=== PATIENT | male | born 1990 | race Hispanic/Latino ===

== ENCOUNTER 2018-08-08 15:48 | Observation (INO) | payer SELFPAY ==
[~2018-08-08] VITALS: Ht 170.2 cm; Wt 86.7 kg
[2018-08-08] MEDS ORDERED: KETOROLAC TROMETHAMINE 30 MG/ML VIAL IV NR (16:01)
[2018-08-08] MEDS ORDERED: ONDANSETRON HCL INJ 2 MG/ML VIAL IV NR (16:01)
[2018-08-08] MEDS ORDERED: SODIUM CHLORIDE 0.9% 1000ML 1,000 ML ONE (16:10)
[2018-08-08] MEDS ORDERED: SODIUM CHLORIDE 0.9% 1000ML 1,000 ML IV SCH (16:15)
[2018-08-08 17:14] LABS: BASOPHILS # (AUTO) 0.1 (0.0-0.1); BASOPHILS % 0.7 % (0.0-1.0); EOSINOPHILS % 0.3 % (0.0-6.0); LYMPHOCYTES # (AUTO) 1.5 (1.0-3.2); LYMPHOCYTES % 9.4 % (18.0-39.1); MEAN CORPUSCULAR HEMOGLOBIN 29.4 pg (28-32); MEAN CORPUSCULAR HGB CONC 35.3 g/dL (31-35); MEAN CORPUSCULAR VOLUME 83.2 fL (81-99); MONOCYTES # (AUTO) 0.7 (0.2-0.8); MONOCYTES % 4.6 % (4.4-11.3); NEUTROPHILS % 83.9 % (38.7-80.0); PLATELET COUNT 272 x10e3/uL (140-360); RED BLOOD COUNT 6.13 x10e6/uL (4.3-5.7); RED CELL DISTRIBUTION WIDTH 12.8 % (11.7-14.4)
[2018-08-08 17:23] LABS: BLOOD UREA NITROGEN 12 mg/dL (7-26); BUN/CREATININE RATIO 10 (6-25); CALCIUM 9.2 mg/dL (8.4-10.2); CARBON DIOXIDE 18 mmol/L (22-29); CHLORIDE 100 mmol/L (98-107); CREATININE, SERUM 1.17 mg/dL (0.72-1.25); EST GLOMERULAR FILTRATION RATE > 60 ML/MIN (60-); GLUCOSE 148 mg/dL (74-118); SODIUM 138 mmol/L (136-145)
--- NOTE | 2018-08-08 17:23 | Diagnostic Imaging Report ---
EXAM: CT Abdomen and Pelvis WITHOUT contrast INDICATION: ^Stone Protocol ^[id number] ^1621 ^Y COMPARISON: None. TECHNIQUE: Abdomen and pelvis were scanned utilizing a multidetector helical scanner from the lung base to the pubic symphysis without administration of IV contrast. Absence of intravenous contrast decreases sensitivity for detection of focal lesions and vascular pathology. Coronal and sagittal reformations were obtained. Routine protocol was performed. IV CONTRAST: None. ORAL CONTRAST: Water RADIATION DOSE: Total DLP: 428.7 mGy*cm Estimated effective dose: (DLP x 0.015 x size factor) mSv COMPLICATIONS: None FINDINGS: LINES and TUBES: None. LOWER THORAX: Unremarkable HEPATOBILIARY: No focal hepatic lesions. No biliary ductal dilation. GALLBLADDER: No radio-opaque stones or sludge. No wall thickening. SPLEEN: No splenomegaly. PANCREAS: No focal masses or ductal dilatation. ADRENALS: No adrenal nodules KIDNEYS/URETERS: The left kidney is swollen and surrounding by moderate amount of low-attenuation free fluid and fat stranding. There is also surrounding fat stranding in the proximal and mid ureter without dilatation. No calcified stones in the left ureter or renal parenchyma. The right kidney and right ureter appear unremarkable. GI TRACT: No abnormal distention, wall thickening, or evidence of bowel obstruction. Appendix is normal. PELVIC ORGANS/BLADDER: Unremarkable. LYMPH NODES: No lymphadenopathy. VESSELS: Unremarkable. PERITONEUM / RETROPERITONEUM: No free air or fluid. BONES: Unremarkable. SOFT TISSUES: Unremarkable. IMPRESSION: Extensive swelling of the left kidney with surrounding moderate amount of low-attenuation fluid and mild inflammatory changes of the proximal and mid left ureter without calcified stones. Findings are highly concerning for ureteral-pyelonephritis. Differential diagnosis includes recently passed stone with increased blood flow. Signed by: Dr. Mady Scott M.D. on 08/08/2018 5:20 PM
[2018-08-08] MEDS ORDERED: CEFTRIAXONE SOD 1 GM VIAL IV ONE (18:45)
[2018-08-08] MEDS ORDERED: MEROPENEM 1GM 100 ML IV SCH ×2 (19:00→22:00)
--- OUTSIDE RECORDS SUMMARY | 2018-08-08 19:10 | XMS REPORT ---
Author Author [facility] Address Unknown Phone Unavailable Care Team Providers Care Chimney Sweeper Name Role Phone Crystal MUNOZ Unavailable Unavailable Problems This patient has no known problems. Allergies, Adverse Reactions, Alerts This patient has no known allergies or adverse reactions. Medications This patient has no known medications. Results Test Description Test Time Test Comments Text Results Atomic Results Result Comments CT ABDOMEN/PELVIS WO 2018-08-08 17:15:00 [place] [address] Patient Name: RICK GARCIA MR #: [id number] : 1990 Age/Sex: 27/M Req #: [id number] Adm Physician: Ordered by: ALBERTO MUNOZ MD Report #: [id number] Location: ER Room/Bed: Procedure: [id number] CT/CT ABDOMEN/PELVIS WO Exam Date: 08/08/18 Exam Time: 1621 REPORT STATUS: Signed EXAM: CT Abdomen and Pelvis WITHOUT contrast RENETTA CATION: Stone Protocol [id number] 1621 Y COMPARISON: None. TECHNIQUE: Abdomen and pelvis were scanned utilizing a multidetector helical scanner from the lung base to the pubic symphysis without administration of IV contrast. Absence of intravenous contrast decreases sensitivity for detection of focal lesions and vascular pathology. Coronal and sagittal reformations were obtained. Routine protocol was performed. IV CONTRAST: None. ORAL CONTRAST: Water RADIATION DOSE: Total DLP: 428.7 mGy*cm Estimated effective dose: (DLP x 0.015 x size factor) mSv COMPLICATIONS: None FINDINGS: LINES and TUBES: None. LOWER THORAX: Unremarkable HEPATOBILIARY: No focal hepatic lesions. No biliary ductal dilation. GALLBLADDER: No radio-opaque stones or sludge. No wall thickening. SPLEEN: No splenomegaly. PANCREAS: No focal masses or ductal dilatation. ADRENALS: No adrenal nodules KIDNEYS/URETERS: The left kidney is swollen and surrounding by moderate amount of low-attenuation free fluid and fat stranding. There is also surrounding fat stranding in the proximal and mid ureter without dilatation. No calcified stones in the left ureter or renal parenchyma. The right kidney and right ureter appear unremarkable. GI TRACT: No abnormal distention, wall thickening, or evidence of bowel obstruction. Appendix is normal. PELVIC ORGANS/BLADDER: Unremarkable. LYMPH NODES: No lymphadenopathy. VESSELS: Unremarkable. PE RITONEUM / RETROPERITONEUM: No free air or fluid. BONES: Unremarkable. SOFT TISSUES: Unremarkable. IMPRESSION: Extensive swelling of the left kidney with surrounding moderate amount of low-attenuation fluid and mild inflammatory changes of the proximal and mid left ureter without calcified stones. Findings are highly concerning for ureteral-pyelonephritis. Differential diagnosis includes recently passed stone with increased blood flow. Signed by: Dr. Alli Mccarthy M.D. on 08/08/2018 5:20 PM Dictated By: ALLI MCCARTHY MD 19 Transcribed By: BOB on 08/08/181719 COPY TO: ALBERTO MUNOZ MD
[2018-08-08 19:14] LABS: CLARITY,URINE CLOUDY (CLEAR); COLOR,URINE YELLOW (YELLOW); LEUKOCYTE ESTERASE ,URINE NEGATIVE (NEGATIVE); NITRITE,URINE NEGATIVE (NEGATIVE); PROTEIN,URINE DIPSTICK 3+ (NEGATIVE)
[2018-08-08 19:15] LABS: BILIRUBIN,URINE 1+ (NEGATIVE); KETONES,URINE NEGATIVE (NEGATIVE); URINE UROBILINOGEN 0.2 mg/dL (0.2 - 1)
[2018-08-08 19:34] LABS: RBC,URINE 21-50 /HPF (0-5)
[2018-08-08 19:36] LABS: AMORPHOUS SEDIMENT,URINE MODERATE (FEW); BACTERIA,URINE MODERATE /HPF; EPITHELIAL CELLS,URINE FEW /LPF; TRANSITIONAL EPI CELLS,URINE FEW
[2018-08-08 19:38] LABS: RENAL EPITHELIAL CELLS,URINE FEW
[2018-08-08 21:30] VITALS: BP 142/87
--- NOTE | 2018-08-08 21:30 | NUR ---
Pt received from ER. Pt A&O and in no apparent distress. Pt in visible pain and guarding abdomen. Pt family member at bedside. Pt Maori speaking. All safety measures ensured, bed alarm on, and pt call mixon near.
[2018-08-08] MEDS: HYDROMORPHONE 2MG/ML 2 MG/ML ML IV PRN (21:45)
[2018-08-08] MEDS: ONDANSETRON HCL INJ 2 MG/ML VIAL IV PRN (21:46)
[2018-08-08] MEDS: SODIUM CHLORIDE 0.9% 1000ML 1,000 ML IV SCH ×2 (21:46→23:00)
[2018-08-08 21:47] VITALS: BP 142/87
[2018-08-09] VITALS: BP 129/81
[2018-08-09] MEDS: ONDANSETRON HCL INJ 2 MG/ML VIAL IV PRN ×2 (02:07→12:30)
[2018-08-09] MEDS: HYDROMORPHONE 2MG/ML 2 MG/ML ML IV PRN ×5 (02:07→23:46)
[2018-08-09 04:00] VITALS: BP 130/90
[2018-08-09] MEDS: MEROPENEM 1GM 100 ML IV SCH ×2 (05:29→13:00)
[2018-08-09] MEDS: SODIUM CHLORIDE 0.9% 1000ML 1,000 ML IV SCH ×2 (05:29→14:40)
[2018-08-09 05:54] LABS: BASOPHILS # (AUTO) 0.1 (0.0-0.1); BASOPHILS % 0.4 % (0.0-1.0); EOSINOPHILS % 0.1 % (0.0-6.0); HEMATOCRIT 44.1 % (38.2-49.6); LYMPHOCYTES # (AUTO) 0.9 (1.0-3.2); LYMPHOCYTES % 6.5 % (18.0-39.1); MEAN CORPUSCULAR HEMOGLOBIN 29.1 pg (28-32); MEAN CORPUSCULAR VOLUME 85.5 fL (81-99); MONOCYTES # (AUTO) 1.1 (0.2-0.8); NEUTROPHILS # (AUTO) 11.9 (2.1-6.9); NEUTROPHILS % 84.3 % (38.7-80.0); PLATELET COUNT 217 x10e3/uL (140-360); RED BLOOD COUNT 5.16 x10e6/uL (4.3-5.7); RED CELL DISTRIBUTION WIDTH 13.2 % (11.7-14.4)
[2018-08-09 06:00] LABS: ANION GAP 21.3 mmol/L (8-16); CALCIUM 7.4 mg/dL (8.4-10.2); CREATININE, SERUM 1.69 mg/dL (0.72-1.25)
[2018-08-09 06:07] LABS: POTASSIUM 5.3 mmol/L (3.5-5.1)
--- NOTE | 2018-08-09 07:35 | NUR ---
Report given to oncoming nurse
--- NOTE | 2018-08-09 07:35 | NUR ---
Report given to oncoming nurse
[2018-08-09 08:00] VITALS: BP 127/84
--- NOTE | 2018-08-09 09:01 | NUR ---
CASE MANAGEMENT INITIAL ASSESSMENT Catalyst Operator Gasoline to bedside to discuss plan of care with patient/family. CM/SW role and care transitions discussed. Anticipated discharge plan discussed along with duration of care. CM/SW discussed patients right to make decisions in care. CM/SW work hours given. 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 RESOURCES THAT PATIENT MAY BE ABLE TO FOLLOW UP UPON DISCHARGE. PT EDUCATED ON EACH RESOURCE AND UNDERSTANDING HOW TO FOLLOW UP TO SEE IF QUALIFIED FOR EACH RESOURCE. CM/SW left business card at the bedside with contact information. Name and number was also written on the patients whiteboard. Patient verbalized understanding of discussion. CM will follow-up with ongoing discharge and transition of care needs.
[2018-08-09 12:18] VITALS: BP 137/89
--- NOTE | 2018-08-09 12:37 | Consultation ---
DATE OF CONSULTATION: August 09, 2018 HISTORY OF PRESENT ILLNESS: Mr. Cristobal is a 27-year-old gentleman admitted to [facility] with a one month history of chronic pain on the left flank with progressive movement towards the left testicle with some dysuria. Pain progressively got worse to the point where he could not handle it, and so he finally came in. When the patient came in, temperature was 96.5. Urine culture is done which is pending and it is on hold for growth. White count was 15.49 with a platelet count of 272,000 his creatinine was 1.17 with a BUN of 12. The CT scan was done from the abdomen and pelvis that showed extensive swelling of the left kidney with surrounding moderate amount of low attenuation fluid and mild inflammatory changes of the proximal and mid left ureter without calcified stones. Findings were highly concerning for urethral-pyelonephritis. Also, mentioned that the differential diagnosis included recently passed a stone with increased blood flow. Per december discussion with the patient, the patient does not remember passing a stone. The patient denies any past medical history. The patient denies any medication at home. Denied any nausea, vomiting, fever or chills. While he was at the hospital, he had nausea and vomiting today and yesterday actually. PAST MEDICAL HISTORY: Denied any past medical history and denied any home medications. ALLERGIES: NO KNOWN DRUG ALLERGIES. LABORATORY DATA: As mentioned above. Urine cultures pending. MEDICATIONS: Medication list has been reviewed. From the infectious disease point of view, the patient is on meropenem 1 gram q.8 h. REVIEW OF SYSTEMS: Left flank pain, slightly improved but is still there. PHYSICAL EXAMINATION GENERAL: Alert and oriented. Supine in bed. VITAL SIGNS: Temperature is 97.2, pulse 84, respirations 14, blood pressure 127/84. CVS: S1 and S2. HEENT AND NECK: Moist, no pallor, no JVD. CHEST: Equal in expansion and clear to auscultation. No acute distress. ABDOMEN: Soft and nontender, no distention. Left flank seems tender. EXTREMITIES: Moves all extremities. NEUROLOGIC: The patient is alert and oriented in bed. ASSESSMENT AND PLAN: This is a 27-year-old gentleman admitted with left flank pain, concern for pyelonephritis. Urine culture in progress. Will continue with meropenem at this point. Follow up the labs and monitor the patient throughout the hospitalization. Further management of this patient is based on daily findings on laboratory and physical examination. I want to thank Dr. Garcia for this kind consult. The case was discussed with Dr. Pennington in detail. Dictated by KHANH Henderson Job#: [id number]
--- NOTE | 2018-08-09 14:25 | NUR ---
MAMI SPOKE TO DR. BRITO REGARDING IV ANTIBIOTIC COSTS AND POSSIBLY CHANGING TO P.O. OPTIONS SINCE PATIENT IS SELF-PAY. DR. BRITO ORDERED IV MERREM TO CIPRO P.O. 500 MG BID X 14 DAYS. MERREM DISCONTINUED. Addendum: 08/09/18 at 1434 by Tracy Penny CM KD ROQUE NOTIFIED.
[2018-08-09] MEDS: CIPROFLOXACIN 500 MG TAB PO SCH (16:15)
[2018-08-09 16:25] VITALS: BP 128/85
[2018-08-09 20:00] VITALS: BP 138/97
[2018-08-10] VITALS: BP 143/87
[2018-08-10 04:00] VITALS: BP 142/93
[2018-08-10] MEDS: HYDROMORPHONE 2MG/ML 2 MG/ML ML IV PRN ×3 (04:24→11:50)
[2018-08-10 05:32] LABS: BASOPHILS # (AUTO) 0.1 (0.0-0.1); BASOPHILS % 0.5 % (0.0-1.0); EOSINOPHILS # (AUTO) 0.1 (0.0-0.4); EOSINOPHILS % 0.9 % (0.0-6.0); HEMATOCRIT 37.8 % (38.2-49.6); HEMOGLOBIN 12.7 g/dL (14.0-18.0); LYMPHOCYTES # (AUTO) 1.2 (1.0-3.2); LYMPHOCYTES % 12.4 % (18.0-39.1); MEAN CORPUSCULAR HGB CONC 33.6 g/dL (31-35); MEAN CORPUSCULAR VOLUME 86.3 fL (81-99); MONOCYTES # (AUTO) 0.9 (0.2-0.8); MONOCYTES % 9.3 % (4.4-11.3); NEUTROPHILS # (AUTO) 7.3 (2.1-6.9); PLATELET COUNT 147 x10e3/uL (140-360); RED BLOOD COUNT 4.38 x10e6/uL (4.3-5.7); RED CELL DISTRIBUTION WIDTH 12.7 % (11.7-14.4)
[2018-08-10 05:50] LABS: ANION GAP 11.6 mmol/L (8-16); CALCIUM 7.4 mg/dL (8.4-10.2); CREATININE, SERUM 1.67 mg/dL (0.72-1.25); POTASSIUM 4.6 mmol/L (3.5-5.1)
[2018-08-10] MEDS: SODIUM CHLORIDE 0.9% 1000ML 1,000 ML IV SCH (06:46)
[2018-08-10 08:29] VITALS: BP 134/88
[2018-08-10] MEDS: CIPROFLOXACIN 500 MG TAB PO SCH (08:50)
[2018-08-10] MEDS: ONDANSETRON HCL INJ 2 MG/ML VIAL IV PRN (11:50)
[2018-08-10 12:39] VITALS: BP 135/86
[2018-08-10] MEDS ORDERED: CIPRO500 MG PO (13:08)
== END 2018-08-10 14:43 | disposition home or self-care (01) ==
LOC: ER 15:48 → ERHOLD 19:08 → IMCU 21:14
DX: N10 Acute pyelonephritis (principal); Z87.891 Personal history of nicotine dependence
CPT/HCPCS: 36415 ×3; 74176; 80048 ×3; 81001; 84132; 85025 ×3; 87086; 99284; G0378 ×3; J1170 ×3; J1885; J2185 ×2; J2405 ×3; J7030 ×3